=== PATIENT | male | born 1980 | race Caucasian/White ===

== ENCOUNTER 2023-06-30 17:11 | Emergency (ER) | payer BC ==
[2023-06-30 17:41] VITALS: RESP 17; TEMP 98.6; BMI 30.2
[2023-06-30 18:09] LABS: HEMOGLOBIN 15.8 G/dL (11.7-16.9); MCH 30.3 pg (25.7-33.7); MCHC 35.9 g/dl (32.0-35.9); MEAN CELL VOLUME 84.4 fl (80-96); MEAN PLT VOLUME 7.9 fl (7.5-11.1); PLATELET COUNT 219.5 10^3/uL (134-434); RBC 5.21 10^6/uL (4.00-5.60); RDW 13.7 % (11.9-15.9); WHITE BLOOD COUNT 9.3 10^3/uL (4.0-10.8)
[2023-06-30 18:24] LABS: PLATELET ESTIMATE ADEQUATE
[2023-06-30 18:28] LABS: ALBUMIN 4.1 g/dl (3.4-5.0); BILIRUBIN,TOTAL 0.6 mg/dl (0.2-1); CALCIUM 9.1 mg/dl (8.5-10.1); CREATININE 0.8 mg/dl (0.6-1.3); MAGNESIUM 2.1 mg/dL (1.8-2.4); POTASSIUM 4.8 mmol/L (3.5-5.1); TOT PROT 7.3 g/dl (6.4-8.2)
[2023-06-30] MEDS: SODIUM CHLORIDE 0.9% 500 ML INFUS.BAG IV ONE ×2 (18:33→19:15)
[2023-06-30 18:35] VITALS: BP 142/99; PULSE 79
[2023-06-30] MEDS: SODIUM CHLORIDE 0.9% 500 ML INFUS.BAG IV STA (18:51)
== END 2023-06-30 19:39 | disposition home or self-care (01) ==
LOC: FER 17:11
DX: R42 Dizziness and giddiness (principal); I10 Essential (primary) hypertension; E87.1 Hypo-osmolality and hyponatremia; R11.0 Nausea; R51.9 Headache, unspecified
CPT/HCPCS: 36415; 70450-TC; 80053; 81003; 82962; 83735; 84484; 85027; 93005; 99285-25

== ENCOUNTER 2025-02-16 00:41 | Emergency (ER) | payer BC, OTHER ==
[2025-02-16 00:47] VITALS: BP 131/98; PULSE 96; RESP 16; TEMP 98.2; BMI 30.3
[2025-02-16] MEDS ORDERED: FAMOTIDINE 20 MG/50 ML IVPB 20 MG/50 ML MG IVPB ONE (00:55)
[2025-02-16] MEDS ORDERED: ACETAMINOPHEN INJECTION 100 ML ONE (00:59)
[2025-02-16] MEDS: ACETAMINOPHEN 1000 MG/100 ML BAG IVPB ONE (01:01)
[2025-02-16] MEDS: FAMOTIDINE 20 MG/50 ML IVPB 20 MG/50 ML MG IVPB ONE (01:02)
[2025-02-16] MEDS ORDERED: SIMETHICONE 80 MG TAB.CHEW (FP) ONE (01:08)
[2025-02-16] MEDS: SIMETHICONE 80 MG TAB.CHEW (FP) PO ONE (01:14)
[2025-02-16 02:35] LABS: ABSOLUTE IMMATURE GRANULOCYTES 0.04 x10^3/uL (0.0-0.031); BASOPHILS # 0.09 x10^3/uL (0.01-0.08); EOSINOPHIL % 2.4 % (0.8-7.0); EOSINOPHILS # 0.18 x10^3/uL (0.04-0.54); MCHC 35.2 g/dl (32.3-36.5); MEAN CELL VOLUME 84.0 fl (79.0-92.2); MEAN PLT VOLUME 10.0 fl (9.4-12.4); MONOCYTE # 0.62 x10^3/uL (0.30-0.82); MONOCYTE % 8.4 % (5.3-12.2); RDW 12.5 % (12.1-15.9)
[2025-02-16 02:40] LABS: ALK PHOS 36.0 U/L (40-150); CO2 23.0 mmol/L (21-32); CREATININE 1.19 mg/dL (0.55-1.3); GLUCOSE,RANDOM 118.0 mg/dL (74-106); SGOT/AST 27.0 U/L (5-34); SGPT/ALT 29.0 U/L (0-55); TOT PROT 7.8 g/dl (6.4-8.2)
== END 2025-02-16 03:24 | disposition home or self-care (01) ==
LOC: FER 00:41
PROC: 3E033GC Introduction of Other Therapeutic Substance into Peripheral Vein, Percutaneous Approach (ICD-10-PCS; principal; 2025-02-16)
PROC: 3E033NZ Introduction of Analgesics, Hypnotics, Sedatives into Peripheral Vein, Percutaneous Approach (ICD-10-PCS; 2025-02-16)
DX: R10.13 Epigastric pain (principal); K92.0 Hematemesis
CPT/HCPCS: 36415; 71046-TC-FY; 74019-TC-FY; 80053; 84484; 85025; 93005; 99285-25